=== PATIENT | female | born 1990 | race African-American/Black ===

== ENCOUNTER 2019-09-07 18:12 | Emergency (ER) | payer OTHER ==
[2019-09-07 18:36] VITALS: BP 115/88
[2019-09-07 19:53] LABS: Influenza A Molecular NEGATIVE (Negative); Influenza B Molecular NEGATIVE (Negative)
--- NOTE | 2019-09-07 20:08 | UC ---
Respiratory Complaint HPI - HPI Summary HPI Summary: 29 yo with cough and shortness of breath x 1 day, without fever. Smokes lightly , past hx of asthma, but no recent inhaler use. - History of Current Complaint Chief Complaint: UCGeneralIllness Stated Complaint: COUGH, SOB Time Seen by Provider: 09/07/19 19:59 Hx Obtained From: Patient Onset/Duration: Sudden Onset, Lasting Days - 2 Timing: Constant Severity Initially: Mild Severity Currently: Moderate Pain Intensity: 7 Character: Cough: Nonproductive Aggravating Factors: Exertion, Deep Breaths Alleviating Factors: Nothing Associated Signs And Symptoms: Positive: Dyspnea, Chills - Risk Factors Pulmonary Embolism Risk Factors: Negative Cardiac Risk Factors: Negative Pseudomonas Risk Factors: Negative Tuberculosis Risk Factors: Negative - Allergies/Home Medications Allergies/Adverse Reactions: Allergies Allergy/AdvReac Type Severity Reaction Status Date / Time No Known Allergies Allergy Verified 09/07/19 18:36 PMH/Surg Hx/FS Hx/Imm Hx Previously Healthy: Yes - overweight Respiratory History: Asthma - in childhood - Surgical History Surgical History: None - Family History Known Family History: Positive: Cardiac Disease - father of CA, Diabetes - mother - Social History Occupation: Employed Full-time Lives: With Family Alcohol Use: Occasionally Substance Use Type: None Smoking Status (MU): Light Every Day Tobacco Smoker Type: Cigarettes, eCigarettes Length of Time of Smoking/Using Tobacco: 7 Have You Smoked in the Last Year: Yes Review of Systems All Other Systems Reviewed And Are Negative: Yes Constitutional: Positive: Fatigue Skin: Positive: Negative Eyes: Positive: Negative ENT: Positive: Sinus Congestion Respiratory: Positive: Shortness Of Breath - chest feels tight, Cough Cardiovascular: Positive: Negative Gastrointestinal: Positive: Negative Genitourinary: Positive: Negative Motor: Positive: Negative Neurovascular: Positive: Negative Musculoskeletal: Positive: Negative Neurological: Positive: Headache Psychological: Positive: Negative Is Patient Immunocompromised?: No Physical Exam Triage Information Reviewed: Yes Appearance: Ill-Appearing - looks mildly unwell, Obese Vital Signs: Initial Vital Signs Temp 96.8 F 09/07/19 18:29 Pulse 77 09/07/19 18:29 Resp 18 09/07/19 18:29 BP 115/88 09/07/19 18:29 Pulse Ox 100 09/07/19 18:29 ENT: Positive: Pharynx normal, TMs normal Neck: Positive: Supple, Nontender, No Lymphadenopathy Respiratory: Positive: No respiratory distress, Decreased breath sounds, Wheezing - with expiration Cardiovascular: Positive: RRR, No Murmur Musculoskeletal Exam: Normal Neurological Exam: Normal Psychological Exam: Normal Skin Exam: Normal Diagnostics - Laboratory Lab Results: flu negative. Respiratory Course/Dx - Course Course Of Treatment: zpack for treatment of bronchitis. - Differential Dx/Diagnosis Differential Diagnosis/HQI/PQRI: Asthma, Bronchitis, Laryngitis Provider Diagnosis: Bronchitis Discharge ED - Sign-Out/Discharge Documenting (check all that apply): Patient Departure All imaging exams completed and their final reports reviewed: No Studies - Discharge Plan Condition: Stable Disposition: HOME Prescriptions: Azithromycin TAB* [Zithromax TAB (Z-COBY) 250 mg #6 tabs] 250 mg PO DAILY #6 tab Patient Education Materials: Acute Bronchitis (ED) Forms: *Work Release Referrals: No Primary Care Phys,NOPCP [Primary Care Provider] - Additional Instructions: Begin use of azithromycin for treatment of bronchitis. Please take the full course of treatment. Make efforts to stop smoking. Rest at home tomorrow with increase in fluids and warm drinks. - Billing Disposition and Condition Condition: STABLE Disposition: Home
== END 2019-09-07 20:23 | disposition home or self-care (01) ==
LOC: UCCORT 18:12
DX: J45.909 Unspecified asthma, uncomplicated (principal); R53.83 Other fatigue; F17.210 Nicotine dependence, cigarettes, uncomplicated; F17.290 Nicotine dependence, other tobacco product, uncomplicated
CPT/HCPCS: 99202; G0463